=== PATIENT | female | born 1990 | race Caucasian/White ===

== ENCOUNTER → 2019-11-02 13:54 | Outpatient (BNVA) | payer MEDICAID, SELFPAY | PROVIDERS: Family Provider Family Medicine; PCP Family Medicine; Visit Provider Obstetrics & Gynecology | DX: Z39.2 Encounter for routine postpartum follow-up (principal); N76.0 Acute vaginitis; B96.89 Other specified bacterial agents as the cause of diseases classified elsewhere | CPT/HCPCS: 87210 ==

== ENCOUNTER 2020-02-16 16:23 | Emergency (ER) | payer MEDICAID, SELFPAY ==
[2020-02-16 16:26] VITALS: BP 128/67; PULSE 65; RESP 18; TEMP 36.4; O2SAT 100; BMI 26.4
--- NOTE | 2020-02-16 16:51 | USR_ITS ---
PROCEDURE INFORMATION: Exam: US Abdomen Limited, Right Upper Quadrant Exam date and time: 02/16/2020 5:54 PM Age: 29 years old Clinical indication: Abdominal pain; Acute; Additional info: Ruq pain, vomiting TECHNIQUE: Imaging protocol: Real-time ultrasound of the abdomen with image documentation. Examination was focused on the right upper quadrant. COMPARISON: No relevant prior studies available. FINDINGS: Liver: Mild diffuse fatty infiltration liver. No visible intra or extrahepatic biliary ectasia with common bile duct averaging under 5 mm. Gallbladder: Gallbladder contains 2 small gallstones the largest measuring approximately 8 mm in the 2nd 5 mm. Marginal gallbladder wall thickening at 4 mm. No pericholecystic fluid. Positive sonographic Worthy sign. Common bile duct: Unremarkable. No stones. No dilation. Pancreas: Limited assessment pancreas unremarkable. Right kidney: Right kidney sonographically normal. No hydronephrosis or perinephric fluid. Dimensions of the right kidney 10 cm by 4.9 cm x 5.4 cm. Portal venous: Antegrade portal venous flow. IVC appears patent. US/US gall bladder 28868 IMPRESSION: 1. Cholelithiasis. 2. Mildly thickened gallbladder wall without pericholecystic fluid. 3. Mild fatty infiltration of the liver. 4. Positive sonographic Worthy sign.
--- NOTE | 2020-02-16 16:52 | ED_ITS ---
HPI - Abdominal Pain General: Chief Complaint: Abdominal Pain Stated Complaint: ABD PAIN Time Seen by Provider: 02/16/20 16:25 History of Present Illness: HPI narrative: Patient is a 29 year old female wtih 2 days of RUQ pain, back pain and vomiting. She has felt chills and sweats but no fever documented. No cough. She has not had this before and has not had any abdominal surgeries. MD elicited complaint: abdominal pain Pertinent past history: none Onset (ago): day(s) (2) Pain Consistency: constant Location: RUQ Severity: severe Quality: stabbing and sharp Radiation: back Exacerbating factors: eating and movement Relieving factors: nothing Associated Symptoms: Reports anorexia, chills, nausea and vomiting; Denies diarrhea and fever(s) Review of Systems General: Reports: 10 or more systems reviewed and unremarkable except in HPI and below Const: Reports: chills; Denies: fever(s) GI: Reports: abdominal pain, nausea and vomiting; Denies: diarrhea PFSH ED PFSH: Social History Smoking and tobacco status: current every day smoker Physical Exam Const: COMMON NORMALS: patient oriented x3 and alert GENERAL APPEARANCE: cooperative, in distress and anxious Eye: SCLERA: sclerae normal Neck/C-Spine: COMMON NORMALS: full ROM Chest: COMMONS NORMALS: normal inspection of the chest Resp: COMMON NORMALS: normal respiratory effort, No use of accessory muscles and clear to auscultation bilaterally AUSCULTATION: clear to auscultation bilaterally Cardio: COMMON NORMALS: regular rate, regular rhythm and No murmurs present (Cardio) RATE: regular rate RHYTHM: regular rhythm GI: COMMON NORMALS: No hepatosplenomegaly present AUSCULTATION: Yes Hypoactive bowel sounds present PALPATION: Yes Tenderness to palpation present (GI) (severe wtih guarding) Details: RUQ and Yes No hepatosplenomegaly present PERCUSSION: normal to percussion : BLADDER/KIDNEY EXAM: No CVA tenderness Back/Pelvis: COMMON NORMALS: thoracic and lumbar spine normal to inspection GENERAL BACK: No CVA tenderness Neuro: COMMON NORMALS: patient oriented x3 SENSORIUM/ORIENTATION: Yes alert Psych: COMMON NORMALS: mental status grossly normal, cooperative and activity/motor behavior normal Skin: COMMON NORMALS: no rashes or lesions noted and no jaundice GENERAL SKIN EXAM: no rashes or lesions noted Course ED course: Patient medicated for pain and nausea with repeated doses and she continued to be very uncomfortable. Afebrile, but elevated WBC, T bili. Lipase 4140. US with thinkened GB wall. Likely choledocolithiasis - will transfer to [facility] for management. Consultations: Consultation #1: Accepted to Dr. Johnson at [facility]. Vital Signs: Vital signs: Vital Signs Temperature 97.5 F L 02/16/20 16:26 Pulse Rate 65 02/16/20 16:26 Respiratory Rate 18 02/16/20 18:18 Blood Pressure 128/67 02/16/20 16:26 Pulse Oximetry 94 02/16/20 18:18 MDM - Abdominal Pain MDM Narrative: Medical decision making narrative: cholecystitis, choledocolithiasis, pancreatitis, perforated viscus. Lab Data: Labs: Lab Results 02/16/20 02/16/20 02/16/20 Range/Units 17:25 17:25 17:25 WBC 18.8 H (4.0-10.0) 10^3/ uL RBC 5.43 H (4.1-5.3) 10^6/u L Hgb 15.2 (11.5-15.3) g/dL Hct 47.5 H (37.0-47.0) % MCV 87.5 (81-99) fL MCH 28.0 (28.0-34.0) pg MCHC 32.0 (30.0-36.0) g/dL RDW 13.9 (12.1-15.1) % Plt Count 320 (130-400) 10^3/c mm MPV 10.7 H (7.4-10.4) fL Neut % (Auto) 85.9 % Lymph % (Auto) 5.6 % [place] % (Auto) 7.4 % Eos % (Auto) 0.1 % Baso % (Auto) 0.3 % Neut # (Auto) 16.2 H (1.8-7.7) 10^3/u L Lymph # (Auto) 1.1 (0.8-4.8) 10^3/u L [place] # (Auto) 1.4 H (0.2-0.9) 10^3/u L Eos # (Auto) 0.0 (0.0-0.8) 10^3/u L Baso # (Auto) 0.1 (0.0-0.1) 10^3/u L Nucleated RBC % (a uto) 0 % Nucleated RBCs # 0.0 /100WBC Sodium 139 (136-145) mmol/L Potassium 3.5 (3.5-5.1) mmol/L Chloride 101 (98-107) mmol/L Carbon Dioxide 21 L (22-29) mmol/L Anion Gap 20.5 H (5-19) BUN 14 (6-20) mg/dL Creatinine 0.8 (0.5-0.9) mg/dL GFR Calculation 85.4 L (90-130) mL/min Glucose 129 H (65-115) mg/dL Calculated Osmolal ity 286 (285-295) mOsm/k g Calcium 9.5 (8.5-10.5) mg/dL Total Bilirubin 5.1 H (0.15-1.2) mg/dL AST 126 H (0-32) U/L ALT 332 H (0-33) U/L Alkaline Phosphata se 179 H (35-105) IU/L Total Protein 7.6 (6.6-8.7) g/dL Albumin 4.9 (3.5-5.2) g/dL Globulin 2.7 (1.3-4.6) g/dL Lipase 4140 H (13-60) U/L HCG, Qual Negative (Negative) Urine Color (Yellow) Urine Appearance (CLEAR) Urine pH (5-7) Ur Specific Gravit y (1.005-1.030) Urine Protein (Negative) Urine Glucose (UA) (Normal) Urine Ketones (Negative) Urine Blood (Negative) Urine Nitrate (Negative) Urine Bilirubin (NEGATIVE) Urine Urobilinogen (Negative) mg/dL Ur Leukocyte Machelle ase (Negative) Urine RBC (0-2) /hpf Urine WBC (0-5) /hpf Ur Squamous Epith Cells (0-5) Urine Bacteria (NONE) Urine Mucus 02/16/20 Range/Units 17:35 WBC (4.0-10.0) 10^3/ uL RBC (4.1-5.3) 10^6/u L Hgb (11.5-15.3) g/dL Hct (37.0-47.0) % MCV (81-99) fL MCH (28.0-34.0) pg MCHC (30.0-36.0) g/dL RDW (12.1-15.1) % Plt Count (130-400) 10^3/c mm MPV (7.4-10.4) fL Neut % (Auto) % Lymph % (Auto) % [place] % (Auto) % Eos % (Auto) % Baso % (Auto) % Neut # (Auto) (1.8-7.7) 10^3/u L Lymph # (Auto) (0.8-4.8) 10^3/u L [place] # (Auto) (0.2-0.9) 10^3/u L Eos # (Auto) (0.0-0.8) 10^3/u L Baso # (Auto) (0.0-0.1) 10^3/u L Nucleated RBC % (a uto) % Nucleated RBCs # /100WBC Sodium (136-145) mmol/L Potassium (3.5-5.1) mmol/L Chloride (98-107) mmol/L Carbon Dioxide (22-29) mmol/L Anion Gap (5-19) BUN (6-20) mg/dL Creatinine (0.5-0.9) mg/dL GFR Calculation (90-130) mL/min Glucose (65-115) mg/dL Calculated Osmolal ity (285-295) mOsm/k g Calcium (8.5-10.5) mg/dL Total Bilirubin (0.15-1.2) mg/dL AST (0-32) U/L ALT (0-33) U/L Alkaline Phosphata se (35-105) IU/L Total Protein (6.6-8.7) g/dL Albumin (3.5-5.2) g/dL Globulin (1.3-4.6) g/dL Lipase (13-60) U/L HCG, Qual (Negative) Urine Color Patricia (Yellow) Urine Appearance Cloudy A (CLEAR) Urine pH 5 (5-7) Ur Specific Gravit y 1.030 (1.005-1.030) Urine Protein Neg (Negative) Urine Glucose (UA) Norm (Normal) Urine Ketones 3+ H (Negative) Urine Blood Neg (Negative) Urine Nitrate Negative (Negative) Urine Bilirubin 2+ H (NEGATIVE) Urine Urobilinogen 8 H (Negative) mg/dL Ur Leukocyte Machelle ase Negative (Negative) Urine RBC None (0-2) /hpf Urine WBC 0-4 H (0-5) /hpf Ur Squamous Epith Cells 0-4 H (0-5) Urine Bacteria 1+ H (NONE) Urine Mucus 3+ Discharge Plan Discharge Prescriptions: No Action metronidazole 500 mg tablet 500 mg PO BID Qty: 10 RF: 0 etonogestrel-ethinyl estradiol [NuvaRing] 0.12-0.015 mg/24 hr ring 1 vag ring VAGINAL ONCE Qty: 3 RF: 4 Coding Level of Care Code ED Skein Straightener for Chg Shaw
[2020-02-16] MEDS: sodium chloride 0.9% 1,000 ML 999 ML IV (17:01)
[2020-02-16 17:04] VITALS: RESP 18; O2SAT 98
[2020-02-16] MEDS: morphine 4 mg/mL SDV 1 mL IVP ×2 (17:04→18:18)
[2020-02-16 17:41] LABS: Basophils # 0.1 10^3/uL (0.0-0.1); Basophils % 0.3 %; Eosinophils % 0.1 %; Hematocrit 47.5 % (37.0-47.0); Hemoglobin 15.2 g/dL (11.5-15.3); Lymphocytes # 1.1 10^3/uL (0.8-4.8); Lymphocytes % 5.6 %; Mean Corpuscular Volume 87.5 fL (81-99); Mean Platelet Volume 10.7 fL (7.4-10.4); Monocytes # 1.4 10^3/uL (0.2-0.9); Monocytes % 7.4 %; Neutrophils # 16.2 10^3/uL (1.8-7.7); Neutrophils % 85.9 %; Nucleated Red Blood Cells % 0 %; Platelet Count 320 10^3/cmm (130-400); Red Blood Count 5.43 10^6/uL (4.1-5.3); Red Cell Distribution Width 13.9 % (12.1-15.1); White Blood Count 18.8 10^3/uL (4.0-10.0)
[2020-02-16 17:53] LABS: HCG, Serum Qual Negative (Negative)
[2020-02-16 18:02] LABS: Alanine Aminotransferase 332 U/L (0-33); Albumin Level 4.9 g/dL (3.5-5.2); Alkaline Phosphatase 179 IU/L (35-105); Anion Gap 20.5 (5-19); Aspartate Amino Transferase 126 U/L (0-32); Blood Urea Nitrogen 14 mg/dL (6-20); Calcium 9.5 mg/dL (8.5-10.5); Carbon Dioxide 21 mmol/L (22-29); Chloride 101 mmol/L (98-107); Globulin 2.7 g/dL (1.3-4.6); Glomerular Filtration Rate 85.4 mL/min (90-130); Glucose 129 mg/dL (65-115); Osmolality Calculated 286 mOsm/kg (285-295); Potassium 3.5 mmol/L (3.5-5.1); Sodium 139 mmol/L (136-145); Total Bilirubin 5.1 mg/dL (0.15-1.2); Total Protein 7.6 g/dL (6.6-8.7)
[2020-02-16 18:07] LABS: Urine Appearance Cloudy (CLEAR); Urine Color Amber (Yellow); pH Urine 5 (5-7)
[2020-02-16 18:08] LABS: Bilirubin Urine 2+ (NEGATIVE); Blood Urine Neg (Negative); Glucose Urine UA Norm (Normal); Ketones Urine 3+ (Negative); Leukocyte Esterase Urine Negative (Negative); Nitrate Urine Negative (Negative); Protein Urine Neg (Negative); Urobilinogen Urine 8 mg/dL (Negative)
[2020-02-16 18:09] LABS: Add Urine Microscopic? YES
[2020-02-16] MEDS: ketorolac 30 mg/mL INJ 15 MG IVP (18:16)
[2020-02-16 18:18] VITALS: RESP 18; O2SAT 94
[2020-02-16 18:27] LABS: Add Urine Culture? No; Bacteria Urine 1+; Mucus Urine 3+; Squamous Epithelial Cell Urine 0-4 (0-5); WBC Urine 0-4 /hpf (0-5)
[2020-02-16] MEDS: piperacillin-tazobactam 3.375 GM in sodium chloride 0.9% (plus) 50 ML IV (18:36)
[2020-02-16 18:40] LABS: Lipase 4140 U/L (13-60)
[2020-02-16 20:00] VITALS: RESP 16
[2020-02-16] MEDS: HYDROmorphone 1 mg/mL INJ 1 mL 0.5 MG IVP (20:00)
[2020-02-16 21:34] VITALS: BP 121/93; PULSE 74; RESP 16; O2SAT 98
== END 2020-02-16 21:38 ==
PROVIDERS: Emergency Provider Emergency Medicine; PCP Family Medicine
DX: R10.9 Unspecified abdominal pain (principal); F17.210 Nicotine dependence, cigarettes, uncomplicated
CPT/HCPCS: 12345; 36415; 76705; 80053; 81001; 83690; 84703; 85025; 96365; 96374; 96375; 96376; 99283; A9270; J1170; J1885; J2270; J2543; J7030

== ENCOUNTER 2020-05-28 05:51 | Day surgery (SDC) | payer MEDICAID, SELFPAY ==
[2020-05-24 10:17] VITALS: BMI 27.3
[2020-05-24 11:51] LABS: Basophils # 0.1 10^3/uL (0.0-0.1); Basophils % 1.2 %; Eosinophils # 0.2 10^3/uL (0.0-0.8); Eosinophils % 2.2 %; Hematocrit 45.6 % (37.0-47.0); Hemoglobin 14.5 g/dL (11.5-15.3); Lymphocytes # 3.1 10^3/uL (0.8-4.8); Lymphocytes % 40.2 %; Mean Corpuscular HGB Conc 31.8 g/dL (30.0-36.0); Mean Corpuscular Hemoglobin 27.4 pg (28.0-34.0); Mean Corpuscular Volume 86.2 fL (81-99); Mean Platelet Volume 10.8 fL (7.4-10.4); Monocytes # 0.6 10^3/uL (0.2-0.9); Monocytes % 7.5 %; Neutrophils # 3.74 10^3/uL (1.8-7.7); Neutrophils % 48.1 %; Nucleated Red Blood Cells % 0 %; Platelet Count 327 10^3/cmm (130-400); Red Blood Count 5.29 10^6/uL (4.1-5.3); Red Cell Distribution Width 12.4 % (12.1-15.1); White Blood Count 7.8 10^3/uL (4.0-10.0)
--- NOTE | 2020-05-24 11:55 | ANES.PREANE2 ---
Pre-Anesthetic Assessment Pre-Anesthetic Assessment: Height/Weight: Height 1.55 m Weight 65.771 kg Preop Diagnosis: Undesired fertility Proposed Procedure: Operation Date: 05/28/20 08:00 Proposed Procedures p Laparoscopic Tubal Fulguration 82475/Z30.9(Bilateral) - Fernando Navarro MD s Salpingectomy(Bilateral) - Fernando Navarro MD Was Beta Reed taken within 24 hours: N/A Social: Social History: Tobacco and No alcohol Exam: Pre-Anes Outpt Exam: alert, oriented x 3, clear to auscultation bilaterally and regular rate & rhythm Airway: Submandibular: WNL Cervical ROM: WNL MP: 2 Dentition: Full History/ROS: No significant history except as noted Pulmonary: Pulmonary: None reported CV/HEM: CV/HEM: None reported : : None reported Hepatic: Hepatic: None reported GI: GI: None reported Metabolic: Metabolic: None reported Musc/skel: Musc/skel: None reported Neuropsych: Neuropsych: None reported Anesthetic Plan: ASA status: 2 Anesthesia: General Risk of > 500 ml blood loss (7ml/kg in children): No PFSH Anesthesia PFSH: Medical History Asthma Blood type A+ Surgical History History of delivery (09/07/19) PLTCS. Dx: Placental abruption, NRFHT. Performed by Dr. Staples at [facility] [place]. History of laparoscopic cholecystectomy (02/17/20) [facility] in [place], [place] Family History Father Hypertension Mother Thyroid disease Also maternal aunt and cousin Social History Smoking and tobacco status: current every day smoker cigarettes Packs smoked per day: 0.5 [ Other cigarette details: Most 1 ppd. Started age 17. ] Alcohol intake: never Substance/Drug Use: never Data Anesthesia CBC & Chem 7: 05/24/20 10:30 Other Labs: Laboratory Results - last 48 hr 05/24/20 10:30 WBC 7.8 RBC 5.29 Hgb 14.5 Hct 45.6 MCV 86.2 MCH 27.4 L MCHC 31.8 RDW 12.4 Plt Count 327 MPV 10.8 H Neut % (Auto) 48.1 Lymph % (Auto) 40.2 [place] % (Auto) 7.5 Eos % (Auto) 2.2 Baso % (Auto) 1.2 Neut # (Auto) 3.74 Lymph # (Auto) 3.1 [place] # (Auto) 0.6 Eos # (Auto) 0.2 Baso # (Auto) 0.1 Nucleated RBC % (auto) 0 Nucleated RBCs # 0.0 Cardiac Studies: No Data to Display
[2020-05-28] VITALS (8 sets, daily range): BP systolic 105–144; BP diastolic 71–90; PULSE 60–79; RESP 16–20; TEMP 36.3–36.4; O2SAT 94–98
[2020-05-28 06:05] LABS: OR HCG Qualitative Urine Negative (Negative)
[2020-05-28] MEDS: ketorolac 30 mg/mL INJ IVP (06:14)
[2020-05-28] MEDS: sodium chloride 0.9% 1,000 ML 30 ML IV (06:15)
--- NOTE | 2020-05-28 06:36 | P.ANESUD_ITS ---
Pre-Anesthetic Update Pre-Anesthetic Assessment: Date of Surgery/Procedure: 05/28/20 Preop Makayla gnosis: Undesired fertility Proposed Procedure: Operation Date: 05/28/20 07:00 Proposed Procedures p Laparoscopic Tubal Fulguration 90238/Z30.9(Bilateral) - Fernando Navarro MD s Salpingectomy(Bilateral) - Fernando Navarro MD Any changes to Pre-Anesthetic Assessment?: No Last Intake: Intake Last Liquid Date 05/27/20 Last Liquid Time 20:30 Last Solid Date 05/27/20 Last Solid Time 19:30 Labs Last 48hrs: Laboratory Results - last 48 hr 05/28/20 06:00 Urine HCG, Qual Negative Vitals: Temperature 97.4 F L 05/28/20 05:56 Temperature Source Tympanic 05/28/20 05:56 Pulse Rate 77 05/28/20 06:01 Respiratory Rate 18 05/28/20 06:01 Blood Pressure 144/90 05/28/20 06:01 Blood Pressure Peggy n 108 05/28/20 06:01 Pulse Oximetry 98 05/28/20 06:01 Oxygen Delivery Me thod 05/28/20 06:01 Exam: Pre-Anes Outpt Exam: alert, oriented x 3, clear to auscultation bilaterally and regular rate & rhythm Cardiac Studies: No Data to Display
--- NOTE | 2020-05-28 06:42 | W.PM.OPSUD ---
Surgery/Procedure H&P Update DATE OF PROCEDURE: May 28, 2020 DATE H&P PERFORMED: 05/10/20 H&P UPDATE INFORMATION: I have reviewed H&P completed within last 30 days, I have examined patient prior to procedure, No changes to prior documentation and H&P is in [facility] on date indicated PREOP DIAGNOSIS: Undesired fertility PLANNED PROCEDURE: Operation Date: 05/28/20 07:00 Proposed Procedures p Laparoscopic Tubal Fulguration 34849/Z30.9(Bilateral) - Fernando Navarro MD s Salpingectomy(Bilateral) - Fernando Navarro MD
--- NOTE | 2020-05-28 08:03 | PM.OP ---
Operative Report Date of procedure: May 28, 2020 Pre-op Diagnosis: Undesired fertility Post-op Diagnosis: Undesired fertility; Pelvic, uterine, and ovarian endometriosis Procedure Done: Laparoscopic bilateral tubal fulguration with complete salpingectomy, Laparoscopic cauterization of endometriosis Specimens removed/disposition: Right and left fallopian tubes Surgeon: Fernando Navarro Metal Stamper: None Estimated blood loss (mL): 5 IV fluids (mL): 1,300 Complications: None Findings: 1. Retroflexed uterus with first to second-degree uterine prolapse. 2. Combination of clear, red, and brown lesions of the left anterior cul-de-sac, surface of bilateral ovaries, left utero-ovarian ligament at junction to uterus, posterior uterus, junction of the right uterosacral ligament to the uterus, right and left ovarian fossa, junction of the sigmoid to the rectum. Brief History: Patient is a 30-year-old white female 2, para 2-0-0-2 with an LMP of 04/20/2020 with current control of abstinence. She had been considering sterilization since her last delivery in 09/2019. She presented to the office on 04/25/2020 to discuss sterilization. Medicaid consent was signed at that time. Today, she is still adamant that she does not want any further children and wants to proceed with sterilization. Different sterilization methods were reviewed with her and she wished to proceed with complete removal of tubes. I reviewed with her that this was not reversible. Risks of ectopic were also reviewed. Questions were answered. She still wished to proceed with complete removal of tubes. Procedure: Patient was taken to the operating room were general anesthesia was obtained. She was prepped and draped in the usual sterile fashion in the dorsal supine position with legs in Pool style stirrups. Sequential compression boots were placed prior to starting the case. Catheter was inserted and bladder was drained. Exam under anesthesia was performed and patient was found to have first to second-degree uterine prolapse with retroverted uterus. Weighted speculum was placed in the vagina and the cervix was grasped with a single-tooth tenaculum. A ZUMI was placed. The infraumbilical region was injected with 1% lidocaine with epinephrine. An infraumbilical skin incision was made with the knife and a size 5 trocar and sheath were inserted under direct visualization using an Optiview type technique. Trocar was removed and replaced with a laparoscope confirming intra-abdominal placement. The abdomen was inflated with carbon dioxide. The anterior abdominal wall was inspected and noted to be free of adhesions. In the left and right lower quadrants lateral to the inferior epigastric vessels, the skin was injected with 1% lidocaine with epinephrine. Skin incisions were made with a knife and a 5 mm trocar and sheath were inserted under direct visualization at each site. The pelvis was thoroughly inspected. She had a combination of clear, brown, and reddish lesions throughout the pelvis. She was found to have surface endometriosis of both ovaries, junction of the left utero-ovarian ligament to the uterus, bilateral ovarian fossa, junction of the right uterosacral ligament to the uterus, posterior surface of the uterus, junction of the sigmoid to the rectum, and left anterior cul-de-sac on the abdominal wall. Using the Voyant sealing device, starting on the left side at the fimbriated end of the tube, the mesosalpinx was sealed and cut along the length of the tube. At the proximal end of the tube, the tube itself was sealed and cut. The fallopian tube was brought out through the port. Using the Voyant sealing device, starting on the right side at the fimbriated end of the tube, the mesosalpinx was sealed and cut along the length of the tube. At the proximal end of the tube, the tube itself was sealed and cut. The fallopian tube was brought out through the port. The dissection area was thoroughly inspected and noted to be hemostatic. Using spatula and monopolar cautery, areas of endometriosis were ablated. However, endometriosis at the junction of the sigmoid to the rectum was not able to be cauterized. The abdomen was deflated and the ports removed. The 5 mm sites were closed with skin glue. The ZUMI was removed and there was minimal bleeding from the tenaculum site. Patient tolerated the procedure well. Sponge, needle and instrument counts were correct. DRAINS: None POSTOPERATIVE STATUS: The patient was transferred to the recovery room in satisfactory condition. DISPOSITION: Discharge to home when criteria was met. FOLLOWUP APPOINTMENT: Followup appointment is scheduled in my office on 06/12/2020. MEDICATIONS: Patient received prescriptions for: Ibuprofen 800 mg, 1 tablet 3 times a day as needed for pain, #30, 0 refills [place] 5/325, 1 to 2 tablets every 6 hours as needed for pain, #20, 0 refills
--- NOTE | 2020-05-28 08:53 | SUR.PHASEI ---
0828 PT TO OPS AWAKE ALERT ON 2LNC, PT REQUESTS SPRITE TO DRINK, PT IS ON 2LNC AND ENCOURAGED TO COUGH, SATS [phone], PT IN OPS AWAKE ALERT SATS UP TO 98% VSS.
--- NOTE | 2020-05-28 12:02 | ANE.PACU2 ---
Inpatient post-anesthesia follow up: Airway intact: Yes Vital signs: Temperature 97.5 F Pulse Rate 61 Respiratory Rate 16 Blood Pressure 109/76 Pulse Oximetry 96 Oxygen Delivery Me thod Room Air Oxygen Flow Rate 2 Fraction of Inspir ed Oxygen Hydration adequate: Yes Nausea and vomiting: No Pain level: 1 Mental status: Baseline
== END 2020-05-28 10:00 | disposition home or self-care (01) ==
PROVIDERS: Obstetrics & Gynecology; PCP Obstetrics & Gynecology; Visit Provider Obstetrics & Gynecology
PROC: (CPT 58999; 2020-05-28 07:00)
PROC: (CPT 58661; 2020-05-28 07:00)
DX: Z30.2 Encounter for sterilization (principal); N80.1 Endometriosis of ovary; N80.3 Endometriosis of pelvic peritoneum; N80.0 Endometriosis of uterus; N81.2 Incomplete uterovaginal prolapse; J45.909 Unspecified asthma, uncomplicated; F17.210 Nicotine dependence, cigarettes, uncomplicated; Z30.09 Encounter for other general counseling and advice on contraception
CPT/HCPCS: 58661; 12345; 81025; 84703; 85025; 88302; 96374; J1100; J1885; J2405; J2704; J2710; J3010; J3490; J7030